=== PATIENT | female | born 1945 | race African-American/Black ===

== ENCOUNTER 2018-07-04 18:23 | Inpatient (IN) | payer MEDICARE, MEDICAID ==
[~2018-07-04] VITALS: Ht 160 cm; Wt 63.5 kg
[~2018-07-04 18:23] MED LIST: IBUPROFEN600 MG PO; NKM
[2018-07-04] MEDS ORDERED: Sodium Chloride 500ML 500 ML IV ONE (18:37)
[2018-07-04 18:58] VITALS: BP 136/72
[2018-07-04 18:58] LABS: BASOPHILS % (AUTO) 1.5 % (0.0-2.0); EOSINOPHILS % (AUTO) 1.3 % (0.0-3.0); HEMATOCRIT 40.4 % (37.0-47.0); HEMOGLOBIN 13.3 G/DL (12.0-16.0); LYMPHOCYTES % (AUTO) 22.7 % (20.0-45.0); MEAN CORPUSCULAR VOLUME 83 FL (80-99); MONOCYTES % (AUTO) 5.2 % (1.0-10.0); NEUTROPHILS % (AUTO) 69.3 % (45.0-75.0); PLATELET COUNT 259 K/UL (150-450); RED BLOOD COUNT 4.89 M/UL (4.20-5.40); RED CELL DISTRIBUTION WIDTH 12.3 % (11.6-14.8); WHITE BLOOD COUNT 8.4 K/UL (4.8-10.8)
[2018-07-04 19:07] LABS: APPEARANCE,URINE CLOUDY; BILIRUBIN, URINE NEGATIVE (NEGATIVE); COLOR,URINE YELLOW; GLUCOSE, URINE (UA) NEGATIVE (NEGATIVE); KETONES,URINE 1+ (NEGATIVE); LEUKOCYTE ESTERASE ,URINE 3+ (NEGATIVE); NITRITE,URINE NEGATIVE (NEGATIVE); PH,URINE 5 (4.5-8.0); PROTEIN,URINE 2+ (NEGATIVE); UROBILINOGEN,URINE 4 MG/DL (0.0-1.0)
[2018-07-04 19:09] LABS: ANION GAP 10 mmol/L (5-15); BLOOD UREA NITROGEN 12 mg/dL (7-18); CALCIUM 9.7 MG/DL (8.5-10.1); CARBON DIOXIDE 29 MMOL/L (21-32); CHLORIDE 104 MMOL/L (98-107); CREATININE 1.1 MG/DL (0.55-1.30); POTASSIUM 3.6 MMOL/L (3.5-5.1); SODIUM 143 MMOL/L (136-145)
--- NOTE | 2018-07-04 19:19 | Diagnostic Imaging Report ---
EXAM: XR Chest, 1 View CLINICAL HISTORY: CP TECHNIQUE: Frontal view of the chest. COMPARISON: No relevant prior studies available. FINDINGS: Lungs: Unremarkable. No consolidation. Pleural space: Unremarkable. No pneumothorax. Heart: Unremarkable. No cardiomegaly. Mediastinum: Unremarkable. Bones/joints: Chronic right rib fractures. IMPRESSION: No acute cardiopulmonary disease.
[2018-07-04 19:23] LABS: ALANINE AMINOTRANSFERASE 15 U/L (12-78); ALBUMIN 4.2 G/DL (3.4-5.0); ALBUMIN/GLOBULIN RATIO 0.9 (1.0-2.7); ALKALINE PHOSPHATASE 87 U/L (46-116); ASPARTATE AMINO TRANSFERASE 18 U/L (15-37); BILIRUBIN,TOTAL 0.5 MG/DL (0.2-1.0); CKMB 1.1 NG/ML (0.0-3.6); CREATINE KINASE 124 U/L (26-308)
--- NOTE | 2018-07-04 19:27 | Emergency Room Report ---
History of Present Illness General Chief Complaint: Dizziness Source: Patient Present Illness HPI Patient presents with complaints of several different concerns Initially reports that she was having a headache with off-and-on dizziness since this afternoon Patient also reports that at 5:00 after eating some chips she had increased nausea vomiting Denies any diarrhea as of yet Patient reports the last time she had this she had pneumonia At this time denies any chest pain or shortness of breath She does have increased dizziness with any change in position Denies any focal weakness denies any recent travel or trauma Allergies: Coded Allergies: ALCOHOL (Verified Allergy, Unknown, 07/04/18) Patient gets a rash Pork (Verified Allergy, Unknown, 07/04/18) Patient History Past Medical History: see triage record Pertinent Family History: none Last Menstrual Period: 3 decades ago Now: No Reviewed Nursing Documentation: PMH: Agreed; PSxH: Agreed Nursing Documentation-PMH Past Medical History: No Stated History Review of Systems All Other Systems: negative except mentioned in HPI Physical Exam Vital Signs Date Time Temp Pulse Resp B/P (MAP) Pulse Ox O2 Delivery O2 Flow Rate FiO2 07/04/18 18:27 98.1 74 16 117/78 100 07/04/18 18:58 Room Air Sp02 EP Interpretation: reviewed, normal General Appearance: well appearing, no apparent distress Head: normocephalic, atraumatic Eyes: bilateral eye PERRL, bilateral eye EOMI ENT: hearing grossly normal, normal pharynx, TMs + canals normal, uvula midline Neck: full range of motion, supple, no meningismus, no bony tend Respiratory: lungs clear, normal breath sounds, no rhonchi, no respiratory distress, no retraction, no accessory muscle use Cardiovascular #1: normal peripheral pulses, regular rate, rhythm, no edema, no gallop, no JVD, no murmur Gastrointestinal: normal bowel sounds, non tender, soft, no mass, no organomegaly, non-distended, no guarding, no hernia, no pulsatile mass, no rebound Genitourinary: no CVA tenderness Musculoskeletal: normal inspection Neurologic: oriented x3, responsive, lock plater III-XII nml as tested, motor strength/ tone normal, sensory intact Psychiatric: mood/affect normal Skin: normal color, no rash, warm/dry, palpation normal Lymphatic: normal inspection, no adenopathy Medical Decision Making Diagnostic Impression: Primary Impression: UTI (urinary tract infection) Additional Impression: Dizziness ER Course Patient is a fairly complex patient with multiple differential to consideration including but not limited to cardiac cardiopulmonary and vascular emergencies Given the patient's extent of concerns and complaints Imaging was obtained extensive blood work is also initiated CT head did not show any acute disease Patient does show evidence of UTI Clinical mild dehydration as well Patient requiring further inpatient care CBC normal Chemistry normal UA: Positive white blood cells Rhythm Strip Diag. Results EP Interpretation: yes Rate: 66 Rhythm: NSR, no PVC's, no ectopy Chest X-Ray Diagnostic Results Chest X-Ray Diagnostic Results : Chest X-Ray Ordered: Yes # of Views/Limited/Complete: 1 View Indication: Chest Pain EP Interpretation: Yes Interpretation: no consolidation, no effusion, no pneumothorax Impression: No acute disease Electronically Signed by: Jeremias Baldwin DO CT/MRI/US Diagnostic Results CT/MRI/US Diagnostic Results : Impression CT head no acute disease Last Vital Signs Date Time Temp Pulse Resp B/P (MAP) Pulse Ox O2 Delivery O2 Flow Rate FiO2 07/04/18 18:58 97.7 65 16 136/72 100 Room Air Status: improved Disposition: ADMITTED INPATIENT Condition: Serious Referrals: NOT CHOSEN IPA/,REFERRING (PCP) Jeremias Baldwin DO Jul 04, 2018 19:27
--- NOTE | 2018-07-04 20:10 | Diagnostic Imaging Report ---
EXAM: CT Head Without Intravenous Contrast CLINICAL HISTORY: DIZZY TECHNIQUE: Axial computed tomography images of the head/brain without intravenous contrast. CTDI is 70 mGy and DLP is 1316 mGy-cm. One or more of the following dose reduction techniques were used: automated exposure control, adjustment of the mA and/or kV according to patient size, use of iterative reconstruction technique. COMPARISON: No relevant prior studies available. FINDINGS: Brain: No acute intracranial hemorrhage or cortical ischemia. Chronic small vessel ischemic changes. Ventricles: Unremarkable. No ventriculomegaly. Bones/joints: Unremarkable. No acute fracture. Soft tissues: Unremarkable. Sinuses: Unremarkable as visualized. Mastoid air cells: Unremarkable as visualized. IMPRESSION: No acute intracranial abnormality.
[2018-07-04] MEDS ORDERED: cefTRIAXone 1 GM in NS 55 ML IVPB ONE (20:15)
[2018-07-04 20:30] VITALS: BP 123/52
[2018-07-04] MEDS ORDERED: LORazepam Inj 2mg/ml 1ml IV PRN (20:45)
[2018-07-04 21:30] VITALS: BP 130/77
[2018-07-05] VITALS: BP 115/52
[2018-07-05 04:00] VITALS: BP 118/60
[2018-07-05 07:10] LABS: BASOPHILS % (AUTO) 1.7 % (0.0-2.0); EOSINOPHILS % (AUTO) 2.3 % (0.0-3.0); HEMATOCRIT 33.7 % (37.0-47.0); HEMOGLOBIN 10.8 G/DL (12.0-16.0); MEAN CORPUSCULAR VOLUME 82 FL (80-99); MONOCYTES % (AUTO) 6.5 % (1.0-10.0); NEUTROPHILS % (AUTO) 56.5 % (45.0-75.0); PLATELET COUNT 153 K/UL (150-450); RED BLOOD COUNT 4.13 M/UL (4.20-5.40); RED CELL DISTRIBUTION WIDTH 12.4 % (11.6-14.8); WHITE BLOOD COUNT 5.8 K/UL (4.8-10.8)
[2018-07-05 07:28] LABS: ANION GAP 6 mmol/L (5-15); BLOOD UREA NITROGEN 10 mg/dL (7-18); CARBON DIOXIDE 26 MMOL/L (21-32); CHLORIDE 112 MMOL/L (98-107); CREATININE 0.9 MG/DL (0.55-1.30); POTASSIUM 4.4 MMOL/L (3.5-5.1); SODIUM 144 MMOL/L (136-145)
[2018-07-05 08:00] VITALS: BP 127/72
[2018-07-05] MEDS: Enoxaparin 40mg Inj SUBQ SCH (09:25)
--- NOTE | 2018-07-05 10:45 | History and Physical Report ---
DATE OF ADMISSION: 07/04/2018 REASON FOR ADMISSION: 1. Weakness, fatigue. 2. UTI. HISTORY OF PRESENT ILLNESS: The patient is a pleasant 73-year-old female, who presented to the emergency room overnight for further evaluation and care of feeling a little lightheaded and dizzy and weak. The patient states she last time felt this way when she had an infection, specifically pneumonia. Discovered to have a UTI in the emergency room. The patient was started on IV antibiotics and fluids overnight. The patient states she feels much better and her dizziness has resolved. ALLERGIES: Alcohol and pork. PAST MEDICAL HISTORY: Pneumonia. FAMILY HISTORY: None. PAST SURGICAL HISTORY: Noncontributory. REVIEW OF SYSTEMS: NEUROLOGIC: The patient denies headache, change in vision, syncope or presyncopal episodes. CARDIOVASCULAR: No current chest pain, palpitations, or angina. PULMONARY: No difficulty breathing, productive cough, or sputum. GASTROINTESTINAL/GENITOURINARY: No change in urinary or bowel habits. She was having some nausea, no diarrhea. ENDOCRINOLOGY: No night sweats, fevers, or chills. MUSCULOSKELETAL: The patient feeling tired and fatigue. LABORATORY DATA: Laboratories dated July 05, 2018, sodium 144, potassium 4.4, BUN 10, creatinine 0.9. Hemoglobin 10.8, hematocrit 33.7, white cell count 5.8, and platelet count 153. PHYSICAL EXAMINATION: VITAL SIGNS: Blood pressure 127/72, respiratory rate 18, pulse 72, temperature 98.1, and 98% oxygen saturation on room air. GENERAL: The patient awake and alert, not otherwise in distress. HEENT: Extraocular muscles intact. No lymphadenopathy noted. CARDIOVASCULAR: S1, S2. No rubs or gallops. PULMONARY: Clear to auscultation bilaterally. No rales, rhonchi or wheezes. ABDOMEN: Nondistended and nontender. EXTREMITIES: No edema noted. ASSESSMENT AND PLAN: 1. Weakness and fatigue secondary to underlying UTI. The patient also dehydrated. We will continue IV fluids and monitoring the patient as she is vastly improved overnight with hydration. 2. UTI. Continue Rocephin IV. The patient is vastly improved. Continue IV fluids. 3. DVT prophylaxis with heparin subcutaneous. 4. Disposition. The patient is currently homeless. Social Work consult has been placed for evaluation and discharge planning. Kiel Torres MD DR: IVÁN JOB#: [id number] CC:
[2018-07-05 12:00] VITALS: BP 129/62
[2018-07-05 16:00] VITALS: BP 138/78
[2018-07-05 20:00] VITALS: BP 129/92
[2018-07-05] MEDS: cefTRIAXone 1 GM in NS 55 ML IVPB SCH (20:32)
[2018-07-06] VITALS: BP 135/70
[2018-07-06 04:00] VITALS: BP 123/51
[2018-07-06 07:11] LABS: BASOPHILS % (AUTO) 1.9 % (0.0-2.0); EOSINOPHILS % (AUTO) 2.7 % (0.0-3.0); HEMATOCRIT 32.9 % (37.0-47.0); HEMOGLOBIN 10.7 G/DL (12.0-16.0); LYMPHOCYTES % (AUTO) 48.9 % (20.0-45.0); MEAN CORPUSCULAR VOLUME 82 FL (80-99); MONOCYTES % (AUTO) 5.8 % (1.0-10.0); NEUTROPHILS % (AUTO) 40.7 % (45.0-75.0); PLATELET COUNT 204 K/UL (150-450); RED BLOOD COUNT 4.01 M/UL (4.20-5.40); RED CELL DISTRIBUTION WIDTH 12.4 % (11.6-14.8); WHITE BLOOD COUNT 4.8 K/UL (4.8-10.8)
[2018-07-06 07:21] LABS: ANION GAP 6 mmol/L (5-15); BLOOD UREA NITROGEN 5 mg/dL (7-18); CALCIUM 8.6 MG/DL (8.5-10.1); CARBON DIOXIDE 28 MMOL/L (21-32); CHLORIDE 110 MMOL/L (98-107); CREATININE 0.9 MG/DL (0.55-1.30); POTASSIUM 4.4 MMOL/L (3.5-5.1); SODIUM 144 MMOL/L (136-145)
[2018-07-06 08:00] VITALS: BP 123/59
[2018-07-06] MEDS: Enoxaparin 40mg Inj SUBQ SCH (09:00)
--- NOTE | 2018-07-06 11:59 | General Progress Note ---
Assessment/Plan Problem List: (1) UTI (urinary tract infection) ICD Codes: N39.0 - Urinary tract infection, site not specified SNOMED: 70122358 (2) Dizziness ICD Codes: R42 - Dizziness and giddiness SNOMED: 084076437, 296544769 Assessment/Plan abxs PT Discussed with RN Subjective Allergies: Coded Allergies: ALCOHOL (Verified Allergy, Unknown, 07/04/18) Patient gets a rash Pork (Verified Allergy, Unknown, 07/04/18) Subjective feels ok Objective Last 24 Hour Vital Signs Date Time Temp Pulse Resp B/P (MAP) Pulse Ox O2 Delivery O2 Flow Rate FiO2 07/06/18 04:00 97.9 54 16 123/51 (75) 98 07/06/18 00:00 97.3 55 16 135/70 (91) 99 07/05/18 21:00 Room Air 07/05/18 20:00 97.5 46 17 129/92 (104) 93 07/05/18 16:00 97.2 54 20 138/78 (98) 99 07/05/18 12:00 97.2 53 20 129/62 (84) 98 Intake and Output 07/05/18 07/06/18 19:00 07:00 Intake Total 2520 ml 1255 ml Balance 2520 ml 1255 ml Intake Oral 1320 ml 500 ml IV Total 1200 ml 755 ml # Voids 3 5 Laboratory Tests 07/06/18 05:40: White Blood Count 4.8, Red Blood Count 4.01L, Hemoglobin 10.7L, Hematocrit 32.9L , Mean Corpuscular Volume 82, Mean Corpuscular Hemoglobin 26.6L, Mean Corpuscular Hemoglobin Concent 32.4, Red Cell Distribution Width 12.4, Platelet Count 204, Mean Platelet Volume 9.2, Neutrophils (%) (Auto) 40.7L, Lymphocytes ( %) (Auto) 48.9H, Monocytes (%) (Auto) 5.8, Eosinophils (%) (Auto) 2.7, Basophils (%) (Auto) 1.9, Sodium Level 144, Potassium Level 4.4, Chloride Level 110H, Carbon Dioxide Level 28, Anion Gap 6, Blood Urea Nitrogen 5L, Creatinine 0.9, Estimat Glomerular Filtration Rate , Glucose Level 82, Calcium Level 8.6 Height (Feet): 5 Height (Inches): 3.00 Weight (Pounds): 126 Cardiovascular: normal rate Respiratory/Chest: lungs clear Edema: no edema noted Generalized Stuart Fontana MD Jul 06, 2018 11:59
[2018-07-06 12:00] VITALS: BP 132/63
[2018-07-06 16:00] VITALS: BP 130/65
[2018-07-06 20:00] VITALS: BP 118/94
[2018-07-06] MEDS: cefTRIAXone 1 GM in NS 55 ML IVPB SCH (20:39)
[2018-07-07] VITALS: BP 118/94
[2018-07-07 04:00] VITALS: BP 126/74
[2018-07-07 08:00] VITALS: BP 147/44
[2018-07-07] MEDS: Enoxaparin 40mg Inj SUBQ SCH (09:00)
[2018-07-07 12:00] VITALS: BP 140/83
--- NOTE | 2018-07-07 14:27 | General Progress Note ---
Assessment/Plan Problem List: (1) UTI (urinary tract infection) ICD Codes: N39.0 - Urinary tract infection, site not specified SNOMED: 55302898 (2) Dizziness ICD Codes: R42 - Dizziness and giddiness SNOMED: 599603893, 080853779 Assessment/Plan abxs PT needs placement Subjective Allergies: Coded Allergies: ALCOHOL (Verified Allergy, Unknown, 07/04/18) Patient gets a rash Pork (Verified Allergy, Unknown, 07/04/18) Subjective some ANDUJAR Objective Last 24 Hour Vital Signs Date Time Temp Pulse Resp B/P (MAP) Pulse Ox O2 Delivery O2 Flow Rate FiO2 07/07/18 11:26 Room Air 07/07/18 08:00 97.1 80 16 147/44 (78) 98 07/07/18 04:00 98.3 62 20 126/74 (91) 99 07/07/18 00:00 98.1 62 20 118/94 (102) 96 07/06/18 21:00 Room Air 07/06/18 20:00 98.1 62 20 118/94 (102) 98 07/06/18 16:00 97.7 66 19 130/65 (86) 98 Intake and Output 07/06/18 07/07/18 18:59 06:59 Intake Total 1625 ml 1155 ml Balance 1625 ml 1155 ml Intake Oral 1625 ml 200 ml IV Total 955 ml # Voids 7 3 # Bowel Movements 1 1 Height (Feet): 5 Height (Inches): 3.00 Weight (Pounds): 126 Cardiovascular: normal rate Respiratory/Chest: lungs clear Stuart Fontana MD Jul 07, 2018 14:27
[2018-07-07 16:00] VITALS: BP 140/81
[2018-07-07 20:00] VITALS: BP 140/71
[2018-07-07] MEDS: cefTRIAXone 1 GM in NS 55 ML IVPB SCH (21:04)
[2018-07-08] VITALS (7 sets, daily range): BP systolic 102–169; BP diastolic 62–98
[2018-07-08] MEDS: Enoxaparin 40mg Inj SUBQ SCH (08:11)
--- NOTE | 2018-07-08 14:49 | General Progress Note ---
Assessment/Plan Problem List: (1) UTI (urinary tract infection) ICD Codes: N39.0 - Urinary tract infection, site not specified SNOMED: 12659867 (2) Dizziness ICD Codes: R42 - Dizziness and giddiness SNOMED: 914103023, 713713472 Assessment/Plan abxs PT needs placement Subjective Allergies: Coded Allergies: ALCOHOL (Verified Allergy, Unknown, 07/04/18) Patient gets a rash Pork (Verified Allergy, Unknown, 07/04/18) Subjective feels ok Objective Last 24 Hour Vital Signs Date Time Temp Pulse Resp B/P (MAP) Pulse Ox O2 Delivery O2 Flow Rate FiO2 07/08/18 12:02 98.5 60 18 144/65 (91) 100 07/08/18 09:00 Room Air 07/08/18 08:16 98.5 68 16 145/69 (94) 98 07/08/18 04:00 98.5 55 19 150/74 (99) 07/08/18 00:00 97.9 53 19 132/66 (88) 96 07/07/18 21:00 Room Air 07/07/18 20:00 98.4 63 18 140/71 (94) 98 07/07/18 16:00 98.0 56 18 140/81 (100) 97 Intake and Output 07/07/18 07/08/18 19:00 07:00 Intake Total 540 ml 1395 ml Balance 540 ml 1395 ml Intake Oral 440 ml 440 ml IV Total 100 ml 955 ml # Voids 3 4 # Bowel Movements 1 Height (Feet): 5 Height (Inches): 3.00 Weight (Pounds): 143 Cardiovascular: normal rate Respiratory/Chest: lungs clear Edema: no edema noted Generalized Stuart Fontana MD Jul 08, 2018 14:49
--- NOTE | 2018-07-08 17:09 | Cardiology Report ---
APPROVED REPORT EKG Measurement Heart [id number] [id number] Sinus bradycardia Otherwise normal ECG
[2018-07-08] MEDS: cefTRIAXone 1 GM in NS 55 ML IVPB SCH (20:20)
[2018-07-09] VITALS: BP 129/69
[2018-07-09 04:00] VITALS: BP 124/77
[2018-07-09 08:00] VITALS: BP 147/77
[2018-07-09] MEDS: Enoxaparin 40mg Inj SUBQ SCH (08:01)
--- NOTE | 2018-07-09 11:51 | General Progress Note ---
Assessment/Plan Problem List: (1) UTI (urinary tract infection) ICD Codes: N39.0 - Urinary tract infection, site not specified SNOMED: 22646484 (2) Dizziness ICD Codes: R42 - Dizziness and giddiness SNOMED: 746109893, 143198143 Assessment/Plan abxs PT needs placement DC tomorrow Subjective Allergies: Coded Allergies: ALCOHOL (Verified Allergy, Unknown, 07/04/18) Patient gets a rash Pork (Verified Allergy, Unknown, 07/04/18) Subjective feels ok Objective Last 24 Hour Vital Signs Date Time Temp Pulse Resp B/P (MAP) Pulse Ox O2 Delivery O2 Flow Rate FiO2 07/09/18 09:00 Room Air 07/09/18 08:00 99.4 61 18 147/77 (100) 97 07/09/18 04:00 98.8 62 16 124/77 (93) 98 07/09/18 00:00 98.2 59 16 129/69 (89) 97 07/08/18 21:00 Room Air 07/08/18 20:51 98.2 07/08/18 20:00 98.2 59 16 102/69 (80) 98 07/08/18 16:11 62 121/62 (81) 07/08/18 15:54 98.2 68 18 169/98 (121) 95 07/08/18 12:02 98.5 60 18 144/65 (91) 100 Intake and Output 07/08/18 07/09/18 18:59 06:59 Intake Total 1240 ml 800 ml Output Total 550 ml Balance 1240 ml 250 ml Intake Oral 840 ml IV Total 400 ml 800 ml Output Urine Total 550 ml # Voids 3 Height (Feet): 5 Height (Inches): 3.00 Weight (Pounds): 138 Cardiovascular: normal rate Respiratory/Chest: lungs clear Stuart Fontana MD Jul 09, 2018 11:51
[2018-07-09 12:00] VITALS: BP 144/89
[2018-07-09 16:00] VITALS: BP 159/84
[2018-07-09 20:00] VITALS: BP 144/85
[2018-07-09] MEDS: cefTRIAXone 1 GM in NS 55 ML IVPB SCH (21:00)
[2018-07-10] VITALS: BP 142/77
[2018-07-10 04:00] VITALS: BP 151/73
[2018-07-10 08:00] VITALS: BP 149/66
[2018-07-10] MEDS: Enoxaparin 40mg Inj SUBQ SCH (08:03)
--- NOTE | 2018-07-10 11:15 | General Progress Note ---
Assessment/Plan Problem List: (1) UTI (urinary tract infection) ICD Codes: N39.0 - Urinary tract infection, site not specified SNOMED: 63953978 (2) Dizziness ICD Codes: R42 - Dizziness and giddiness SNOMED: 495265936, 058059816 Assessment/Plan DC abxs DC today Subjective Allergies: Coded Allergies: ALCOHOL (Verified Allergy, Unknown, 07/04/18) Patient gets a rash Pork (Verified Allergy, Unknown, 07/04/18) Subjective feels ok Objective Last 24 Hour Vital Signs Date Time Temp Pulse Resp B/P (MAP) Pulse Ox O2 Delivery O2 Flow Rate FiO2 07/10/18 09:00 Room Air 07/10/18 08:00 98.9 71 20 149/66 (93) 97 07/10/18 04:00 97.9 60 20 151/73 (99) 99 07/10/18 00:00 97.2 60 20 142/77 (98) 96 07/09/18 21:00 Room Air 07/09/18 20:00 97.5 56 18 144/85 (104) 97 07/09/18 18:24 97.3 07/09/18 16:00 97.3 55 18 159/84 (109) 98 07/09/18 12:00 98.2 18 144/89 (107) 98 Intake and Output 07/09/18 07/10/18 19:00 07:00 Intake Total 480 ml 220 ml Balance 480 ml 220 ml Intake Oral 480 ml 220 ml # Voids 3 2 Height (Feet): 5 Height (Inches): 3.00 Weight (Pounds): 140 Cardiovascular: normal rate Respiratory/Chest: lungs clear Stuart Fontana MD Jul 10, 2018 11:15
[2018-07-10 12:01] VITALS: BP 139/76
--- NOTE | 2018-07-13 08:52 | Discharge Summary ---
Discharge Summary Discharge Summary _ DATE OF ADMISSION: 07/04/2018 DATE OF DISCHARGE: 07/10/2018 REASON FOR ADMISSION: 73 years old female presented to emergency room with complaints of lightheadedness, dizziness and weakness. Patient reported last time she felt this way m, was when she had an infection/ pneumonia. Upon evaluation in emergency room vital signs were stable. CT of the head revealed no acute intracranial pathology. Chest x-ray revealed no acute cardiopulmonary pathology. No leukocytosis ,stable hemoglobin and hematocrit. Troponin negative. EKG revealed normal sinus rhythm, no acute ischemic changes. Urinalysis revealed pyuria and moderate bacteria. Patient started on empiric antibiotics and IV fluids and admitted for further management. HOSPITAL COURSE: Patient admitted to medical surgical floor. Patient started on intravenous hydration and empiric antibiotics. Urine culture revealed Escherichia coli. Antibiotic regimen was optimized based on sensitivity. Renal parameters and electrolytes were closely monitored. Electrolytes corrected as needed. Nephrotoxins were avoided. DVT and GI prophylaxis provided. Fall precautions maintained. Patient was working with physical therapist. Symptomatic treatment provided. Social service met with patient, since she required placement . Patient declined homeless resources and placement on few separate occasions . pre press manager as well met with patient and discussed housing options upon discharge. Patient was resistant and indicated no placement required for her upon discharge. Patient verbalized having a safe location upon discharge. Patient was independent with activities of daily living as per physical therapy evaluation. Patient completed antibiotic course. Dizziness and weakness resolved. Patient was stable for discharge. FINAL DIAGNOSES: Escherichia coli UTI Dehydration Dizziness , likely secondary to infectious process and mild dehydration DISCHARGE MEDICATIONS: See Medication Reconciliation list. DISCHARGE INSTRUCTIONS: Patient was discharged . Outpatient follow-up with primary care provider. I have been assigned to dictate discharge summary for this account. I was not involved in the patient's management. Dari Cochran NP Jul 13, 2018 08:52
== END 2018-07-10 13:12 | disposition home or self-care (01) | DRG 690 ==
LOC: EMR 18:45 → EDBEDREQ 19:18 → 4E 19:32 → EDBEDREQ 19:42
DX: N39.0 Urinary tract infection, site not specified (principal); E86.0 Dehydration; Z59.0 Homelessness; B96.20 Unspecified Escherichia coli [E. coli] as the cause of diseases classified elsewhere; R42 Dizziness and giddiness
CPT/HCPCS: 36415; 70450; 71045; 80048; 80053; 81003; 82550; 82553; 84484; 85025; 87081; 87086; 87181; 93005; 96365; 99285